=== PATIENT | female | born 1960 | race Two or more races ===

== ENCOUNTER 2019-04-23 15:47 | Emergency (ER) | payer OTHER ==
[2019-04-23] MEDS ORDERED: SODIUM CHLORIDE 0.9% 1,000 ML IV STA (16:11)
--- NOTE | 2019-04-23 16:15 | ED ---
General Adult HPI - General Chief complaint: Weakness Stated complaint: weakness Time Seen by Provider: 04/23/19 15:55 Source: patient, EMS, RN notes reviewed Mode of arrival: EMS Limitations: no limitations - History of Present Illness Initial comments: 58-year-old female without any significant past medical history aside from hysterectomy presents to the emergency department near syncope. Patient states that she was cleaning the bathroom using glucagon when she started to feel lightheaded and states she sat down and took a Xanax today she thought this could be a panic attack however it did not resolve. States that her arms legs were tingling. She denies any chest pain or shortness of breath. States that this continued during her ambulance ride and lasted for about 30 minutes total. However at this time patient is feeling much better.Patient has no other complaints at this time including shortness of breath, chest pain, abdominal pain, nausea or vomiting, headache, or visual changes. - Related Data Home Medications Medication Instructions Recorded Confirmed ALPRAZolam [Xanax] 0.125 - 0.25 mg PO BID PRN 04/23/19 04/23/19 Aspirin EC [Ecotrin Low Dose] 324 mg PO ONCE PRN 04/23/19 04/23/19 Loratadine [Claritin] 10 mg PO DAILY PRN 04/23/19 04/23/19 Allergies Allergy/AdvReac Type Severity Reaction Status Date / Time No Known Allergies Allergy Verified 04/23/19 15:56 Review of Systems ROS Statement: Those systems with pertinent positive or pertinent negative responses have been documented in the HPI. ROS Other: All systems not noted in ROS Statement are negative. Past Medical History Past Medical History: No Reported History History of Any Multi-Drug Resistant Organisms: None Reported Past Surgical History: Hysterectomy Past Psychological History: Anxiety Smoking Status: Former smoker Past Alcohol Use History: None Reported Past Drug Use History: None Reported General Exam Limitations: no limitations General appearance: alert, in no apparent distress Head exam: Present: atraumatic, normocephalic, normal inspection Eye exam: Present: normal appearance, PERRL, EOMI. Absent: scleral icterus, conjunctival injection, periorbital swelling ENT exam: Present: normal exam, mucous membranes moist Neck exam: Present: normal inspection, full ROM. Absent: tenderness, meningismus, lymphadenopathy Respiratory exam: Present: normal lung sounds bilaterally. Absent: respiratory distress, wheezes, rales, rhonchi, stridor Cardiovascular Exam: Present: regular rate, normal rhythm, normal heart sounds. Absent: bradycardia, tachycardia, irregular rhythm Neurological exam: Present: alert, oriented X3, CN II-XII intact, normal gait, other (GCS 15) Psychiatric exam: Present: normal affect Course Vital Signs 04/23/19 04/23/19 15:49 16:30 Temperature 97.9 F Pulse Rate 64 58 L Respiratory 18 16 Rate Blood Pressure 124/67 139/73 O2 Sat by Pulse 100 98 Oximetry EKG Findings - EKG Comments: EKG Findings:: Normal sinus rhythm, ventricular rate 62, LA interval 206, QTC 464 Medical Decision Making - Medical Decision Making Patient is a 38-year-old well-appearing female. No significant past medical history. HPI and physical exam as documented. Patient is nontoxic. EKG is unremarkable. CBC is unremarkable. CMP shows mild hyponatremia of 130. Patient was given a normal saline bolus. Patient also has a BUN to creatinine ratio of 23 and 2+ ketones consistent with dehydration. Chest x-ray shows no acute pulmonary process. Patient reevaluated, feeling much better. Patient likely had a tubal episode related to possibly dehydration. She did not have any chest pain or shortness of breath associated with this. As symptoms have r esolved patient can be discharged home to follow up with primary care. She will can return here if she has any worsening symptoms. - Lab Data Result diagrams: 04/23/19 16:24 04/23/19 16:24 Lab Results 04/23/19 04/23/19 04/23/19 Range/Units 16:24 16:24 16:24 WBC 6.9 (3.8-10.6) k/uL RBC 3.65 L (3.80-5.40) m/uL Hgb 12.6 (11.4-16.0) gm/dL Hct 38.1 (34.0-46.0) % MCV 104.4 H (80.0-100.0) fL MCH 34.4 (25.0-35.0) pg MCHC 33.0 (31.0-37.0) g/dL RDW 11.8 (11.5-15.5) % Plt Count 297 (150-450) k/uL Neutrophils % 61 % Lymphocytes % 33 % Monocytes % 3 % Eosinophils % 1 % Basophils % 0 % Neutrophils # 4.2 (1.3-7.7) k/uL Lymphocytes # 2.3 (1.0-4.8) k/uL Monocytes # 0.2 (0-1.0) k/uL Eosinophils # 0.1 (0-0.7) k/uL Basophils # 0.0 (0-0.2) k/uL Macrocytosis Slight PT 9.9 (9.0-12.0) sec INR 0.9 (<1.2) APTT 26.1 (22.0-30.0) sec Sodium 130 L (137-145) mmol/L Potassium 3.5 (3.5-5.1) mmol/L Chloride 99 (98-107) mmol/L Carbon Dioxide 22 (22-30) mmol/L Anion Gap 9 mmol/L BUN 11 (7-17) mg/dL Creatinine 0.46 L (0.52-1.04) mg/dL Est GFR (CKD-EPI)AfAm >90 (>60 ml/min/1.73 sqM) Est GFR (CKD-EPI)NonAf >90 (>60 ml/min/1.73 sqM) Glucose 114 H (74-99) mg/dL POC Glucose (mg/dL) (75-99) mg/dL POC Glu Head Cd Reactor Operator ID Calcium 8.8 (8.4-10.2) mg/dL Total Bilirubin 0.4 (0.2-1.3) mg/dL AST 33 (14-36) U/L ALT 48 (9-52) U/L Alkaline Phosphatase 42 (38-126) U/L Troponin I (0.000-0.034) ng/mL Total Protein 6.3 (6.3-8.2) g/dL Albumin 3.9 (3.5-5.0) g/dL Urine Color Urine Appearance (Clear) Urine pH (5.0-8.0) Ur Specific Neon (1.001-1.035) Urine Protein (Negative) Urine Glucose (UA) (Negative) Urine Ketones (Negative) Urine Blood (Negative) Urine Nitrite (Negative) Urine Bilirubin (Negative) Urine Urobilinogen (<2.0) mg/dL Ur Leukocyte Esterase (Negative) Urine RBC (0-5) /hpf Urine WBC (0-5) /hpf Ur Squamous Epith Cells (0-4) /hpf Urine Mucus (None) /hpf 04/23/19 04/23/19 04/23/19 Range/Units 16:24 16:25 17:04 WBC (3.8-10.6) k/uL RBC (3.80-5.40) m/uL Hgb (11.4-16.0) gm/dL Hct (34.0-46.0) % MCV (80.0-100.0) fL MCH (25.0-35.0) pg MCHC (31.0-37.0) g/dL RDW (11.5-15.5) % Plt Count (150-450) k/uL Neutrophils % % Lymphocytes % % Monocytes % % Eosinophils % % Basophils % % Neutrophils # (1.3-7.7) k/uL Lymphocytes # (1.0-4.8) k/uL Monocytes # (0-1.0) k/uL Eosinophils # (0-0.7) k/uL Basophils # (0-0.2) k/uL Macrocytosis PT (9.0-12.0) sec INR (<1.2) APTT (22.0-30.0) sec Sodium (137-145) mmol/L Potassium (3.5-5.1) mmol/L Chloride (98-107) mmol/L Carbon Dioxide (22-30) mmol/L Anion Gap mmol/L BUN (7-17) mg/dL Creatinine (0.52-1.04) mg/dL Est GFR (CKD-EPI)AfAm (>60 ml/min/1.73 sqM) Est GFR (CKD-EPI)NonAf (>60 ml/min/1.73 sqM) Glucose (74-99) mg/dL POC Glucose (mg/dL) 118 H (75-99) mg/dL POC Glu Head Cd Reactor Operator ID Glen Oliveira Calcium (8.4-10.2) mg/dL Total Bilirubin (0.2-1.3) mg/dL AST (14-36) U/L ALT (9-52) U/L Alkaline Phosphatase (38-126) U/L Troponin I <0.012 (0.000-0.034) ng/mL Total Protein (6.3-8.2) g/dL Albumin (3.5-5.0) g/dL Urine Color Light Yellow Urine Appearance Clear (Clear) Urine pH 6.5 (5.0-8.0) Ur Specific Neon 1.011 (1.001-1.035) Urine Protein Negative (Negative) Urine Glucose (UA) Negative (Negative) Urine Ketones 2+ H (Negative) Urine Blood Negative (Negative) Urine Nitrite Negative (Negative) Urine Bilirubin Negative (Negative) Urine Urobilinogen <2.0 (<2.0) mg/dL Ur Leukocyte Esterase Small H (Negative) Urine RBC 2 (0-5) /hpf Urine WBC 1 (0-5) /hpf Ur Squamous Epith Cells 1 (0-4) /hpf Urine Mucus Rare H (None) /hpf Disposition Clinical Impression: Lightheadedness Disposition: HOME SELF-CARE Condition: Good Instructions (If sedation given, give patient instructions): Lightheadedness (ED) Additional Instructions: Please drink plenty of fluids and increase salt intake. Follow-up with primary care in 1-2 days. Return to the emergency department if you have any worsening symptoms. Is patient prescribed a controlled substance at d/c from ED?: No Referrals: Roberto Carlos Ballard DO [Primary Care Provider] - 1-2 days Time of Disposition: 17:55
[2019-04-23 16:29] LABS: Glucose,Whole Blood 118 mg/dL (75-99)
[2019-04-23 16:30] LABS: Basophils % (A) 0 %; Eosinophils # (A) 0.1 k/uL (0-0.7); Eosinophils % (A) 1 %; HCT 38.1 % (34.0-46.0); HGB 12.6 gm/dL (11.4-16.0); Lymphocytes # (A) 2.3 k/uL (1.0-4.8); Lymphocytes % (A) 33 %; MCH 34.4 pg (25.0-35.0); MCV 104.4 fL (80.0-100.0); Macrocytosis Slight; Mean Platelet Volume 5.4; Monocytes # (A) 0.2 k/uL (0-1.0); Monocytes % (A) 3 %; Neutrophils # (A) 4.2 k/uL (1.3-7.7); Neutrophils % (A) 61 %; Platelet Count 297 k/uL (150-450); RBC 3.65 m/uL (3.80-5.40); RDW 11.8 % (11.5-15.5); WBC 6.9 k/uL (3.8-10.6)
[2019-04-23 16:38] LABS: INR 0.9 (<1.2); Partial Thromboplastin Time 26.1 sec (22.0-30.0); Prothrombin Time 9.9 sec (9.0-12.0)
[2019-04-23 16:41] LABS: ALT 48 U/L (9-52); AST 33 U/L (14-36); African American GFR (CKD) >90 (>60 ml/min/1.73 sqM); Albumin 3.9 g/dL (3.5-5.0); Alkaline Phosphatase 42 U/L (38-126); Anion Gap 9 mmol/L; Blood Urea Nitrogen 11 mg/dL (7-17); Calcium 8.8 mg/dL (8.4-10.2); Carbon Dioxide 22 mmol/L (22-30); Chloride 99 mmol/L (98-107); Glucose 114 mg/dL (74-99); Potassium 3.5 mmol/L (3.5-5.1); Sodium 130 mmol/L (137-145); Total Bilirubin 0.4 mg/dL (0.2-1.3); Total Protein 6.3 g/dL (6.3-8.2)
--- NOTE | 2019-04-23 16:53 | XR ---
EXAMINATION TYPE: XR chest 2V DATE OF EXAM: 04/23/2019 COMPARISON: None INDICATION: Syncope weakness TECHNIQUE: Frontal and lateral views of the chest are obtained. FINDINGS: The heart size is normal. The pulmonary vasculature is normal. The lungs are clear. There is hyperinflation flattening of the diaphragms. Consider emphysematous ch rasheed. IMPRESSION: 1. No acute pulmonary process. 2. Consider emphysema.
[2019-04-23 17:25] LABS: Appearance,Urine Clear (Clear); Bilirubin,Urine Negative (Negative); Blood,Urine Negative (Negative); Color,Urine Light Yellow; Glucose,Urine (UA) Negative (Negative); Ketones,Urine 2+ (Negative); Leukocyte Esterase,Urine Small (Negative); Mucus,Urine Rare /hpf; Nitrite,Urine Negative (Negative); PH, Urine 6.5 (5.0-8.0); Protein,Urine Negative (Negative); RBC,Urine 2 /hpf (0-5); Specific Gravity,Urine 1.011 (1.001-1.035); Squamous Epithelial Cell,Urine 1 /hpf (0-4); Urobilinogen,Urine <2.0 mg/dL (<2.0); WBC,Urine 1 /hpf (0-5)
[2019-04-23 18:18] VITALS: BP 110/58; PULSE 59; RESP 18; TEMP 97.8
== END 2019-04-23 18:16 | disposition home or self-care (01) ==
LOC: EC 15:47
DX: R42 Dizziness and giddiness (principal); E87.1 Hypo-osmolality and hyponatremia; Z87.891 Personal history of nicotine dependence; Z90.710 Acquired absence of both cervix and uterus
CPT/HCPCS: 36415; 71046; 80053; 81001; 84484; 85025; 85610; 85730; 93005; 96360; 99285

== ENCOUNTER 2020-07-05 15:45 | Emergency (ER) | payer BC, OTHER ==
[2020-07-05] MEDS ORDERED: KETOROLAC 15 MG/ML 1 ML VIAL IVP STA (16:17)
[2020-07-05 16:36] LABS: Basophils # (A) 0.1 k/uL (0-0.2); Basophils % (A) 1 %; Eosinophils # (A) 0.1 k/uL (0-0.7); Eosinophils % (A) 2 %; HCT 40.2 % (34.0-46.0); HGB 13.7 gm/dL (11.4-16.0); Lymphocytes % (A) 47 %; MCHC 34.1 g/dL (31.0-37.0); MCV 99.7 fL (80.0-100.0); Mean Platelet Volume 6.1; Monocytes # (A) 0.2 k/uL (0-1.0); Monocytes % (A) 3 %; Neutrophils # (A) 2.9 k/uL (1.3-7.7); Neutrophils % (A) 45 %; Platelet Count 409 k/uL (150-450); RBC 4.03 m/uL (3.80-5.40); RDW 12.1 % (11.5-15.5); WBC 6.3 k/uL (3.8-10.6)
[2020-07-05 16:45] LABS: ALT 31 U/L (4-34); AST 31 U/L (14-36); African American GFR (CKD) >90 (>60 ml/min/1.73 sqM); Albumin 4.7 g/dL (3.5-5.0); Alkaline Phosphatase 49 U/L (38-126); Anion Gap 7 mmol/L; Blood Urea Nitrogen 10 mg/dL (7-17); Calcium 9.9 mg/dL (8.4-10.2); Carbon Dioxide 25 mmol/L (22-30); Chloride 96 mmol/L (98-107); Glucose 91 mg/dL (74-99); Lipase 88 U/L (23-300); Non-African American GFR(CKD) >90 (>60 ml/min/1.73 sqM); Potassium 4.3 mmol/L (3.5-5.1); Sodium 128 mmol/L (137-145); Total Bilirubin 0.4 mg/dL (0.2-1.3); Total Protein 7.6 g/dL (6.3-8.2)
[2020-07-05 16:50] LABS: D-Dimer 0.2 mg/L FEU (<0.60); INR 0.9 (<1.2); Partial Thromboplastin Time 24.4 sec (22.0-30.0); Prothrombin Time 9.9 sec (9.0-12.0)
[2020-07-05] MEDS ORDERED: SODIUM CHLORIDE 0.9% 500 ML 500 ML IV ONE (16:53)
--- NOTE | 2020-07-05 16:55 | ED ---
General Adult HPI - General Chief complaint: Chest Pain Stated complaint: Back/side pain Time Seen by Provider: 07/05/20 16:07 Source: patient, RN notes reviewed, old records reviewed Mode of arrival: ambulatory Limitations: no limitations - History of Present Illness Initial comments: 59-year-old female presenting for evaluation of neck pain, shoulder pain, and chest pain. Patient's symptoms began over one week ago, with left-sided neck pain which she thought was a muscle strain. She denies injury. She states this has progressed the left arm pain. This all occurred after lifting her grandchildren. She denies central chest pain, she only has left upper chest pain adjacent to her shoulder. No dyspnea. No diaphoresis, no vomiting. - Related Data Home Medications Medication Instructions Recorded Confirmed ALPRAZolam [Xanax] 0.125 - 0.25 mg PO BID PRN 04/23/19 04/23/19 Aspirin EC [Ecotrin Low Dose] 324 mg PO ONCE PRN 04/23/19 04/23/19 Loratadine [Claritin] 10 mg PO DAILY PRN 04/23/19 04/23/19 Previous Rx's Medication Instructions Recorded Ibuprofen [Motrin] 600 mg PO Q8HR PRN #24 tab 07/05/20 Allergies Allergy/AdvReac Type Severity Reaction Status Date / Time No Known Allergies Allergy Verified 07/05/20 16:05 Review of Systems ROS Statement: Those systems with pertinent positive or pertinent negative responses have been documented in the HPI. ROS Other: All systems not noted in ROS Statement are negative. Past Medical History Past Medical History: No Reported History History of Any Multi-Drug Resistant Organisms: None Reported Past Surgical History: Hysterectomy Past Psychological History: Anxiety Smoking Status: Former smoker Past Alcohol Use History: None Reported Past Drug Use History: None Reported General Exam Limitations: no limitations General appearance: alert, in no apparent distress Head exam: Present: atraumatic, normocephalic Eye exam: Present: normal appearance, PERRL ENT exam: Present: normal exam Neck exam: Present: normal inspection. Absent: tenderness, meningismus Respiratory exam: Present: normal lung sounds bilaterally. Absent: respiratory distress, wheezes Cardiovascular Exam: Present: regular rate, normal rhythm GI/Abdominal exam: Present: soft. Absent: distended, tenderness, guarding Extremities exam: Present: normal inspection, normal capillary refill, other (2+ left radial pulse). Absent: pedal edema Neurological exam: Present: alert, oriented X3, CN II-XII intact. Absent: motor sensory deficit Psychiatric exam: Present: normal affect, normal mood Skin exam: Present: warm, dry, intact. Absent: cyanosis, diaphoretic, erythema Course Vital Signs 07/05/20 16:01 Temperature 98.2 F Pulse Rate 74 Respiratory 20 Rate Blood Pressure 160/76 O2 Sat by Pulse 99 Oximetry EKG Findings - EKG Comments: EKG Findings:: EKG: Normal sinus rhythm, rate 64, ND interval 192, QRS duration 82, QTC 416, no ST segment elevation Medical Decision Making - Medical Decision Making 59-year-old female with chief complaint of left arm pain and left-sided neck pain. She did have component of left upper chest pain although I suspect this is related to her left neck and left arm pain. She states it is worse while taking care of [id number]-old granddaughter. There is no typical features or central chest pain. EKG is sinus rhythm without ST segment elevation. She has a normal CBC, CMP showing chronic hyponatremia, negative troponin, negative d- dimer. I did perform x-rays of the cervical spine, shoulder, elbow as well as the chest. The only acute abnormality consistent with the patient's pain complaint is a C5 on C6 spondylosis. Patient will be prescribed Motrin, she will follow-up with both her primary care physician and orthopedics. - Lab Data Result diagrams: 07/05/20 16:22 07/05/20 16:22 Lab Results 07/05/20 07/05/20 07/05/20 Range/Units 16:22 16:22 16:22 WBC 6.3 (3.8-10.6) k/uL RBC 4.03 (3.80-5.40) m/uL Hgb 13.7 (11.4-16.0) gm/dL Hct 40.2 (34.0-46.0) % MCV 99.7 (80.0-100.0) fL MCH 34.0 (25.0-35.0) pg MCHC 34.1 (31.0-37.0) g/dL RDW 12.1 (11.5-15.5) % Plt Count 409 (150-450) k/uL MPV 6.1 Neutrophils % 45 % Lymphocytes % 47 % Monocytes % 3 % Eosinophils % 2 % Basophils % 1 % Neutrophils # 2.9 (1.3-7.7) k/uL Lymphocytes # 3.0 (1.0-4.8) k/uL Monocytes # 0.2 (0-1.0) k/uL Eosinophils # 0.1 (0-0.7) k/uL Basophils # 0.1 (0-0.2) k/uL PT 9.9 (9.0-12.0) sec INR 0.9 (<1.2) APTT 24.4 (22.0-30.0) sec D-Dimer 0.20 (<0.60) mg/L FEU Sodium 128 L (137-145) mmol/L Potassium 4.3 (3.5-5.1) mmol/L Chloride 96 L (98-107) mmol/L Carbon Dioxide 25 (22-30) mmol/L Anion Gap 7 mmol/L BUN 10 (7-17) mg/dL Creatinine 0.63 (0.52-1.04) mg/dL Est GFR (CKD-EPI)AfAm >90 (>60 ml/min/1.73 sqM) Est GFR (CKD-EPI)NonAf >90 (>60 ml/min/1.73 sqM) Glucose 91 (74-99) mg/dL Calcium 9.9 (8.4-10.2) mg/dL Magnesium 2.0 (1.6-2.3) mg/dL Total Bilirubin 0.4 (0.2-1.3) mg/dL AST 31 (14-36) U/L ALT 31 (4-34) U/L Alkaline Phosphatase 49 (38-126) U/L Troponin I (0.000-0.034) ng/mL Total Protein 7.6 (6.3-8.2) g/dL Albumin 4.7 (3.5-5.0) g/dL Lipase 88 (23-300) U/L 07/05/20 Range/Units 16:22 WBC (3.8-10.6) k/uL RBC (3.80-5.40) m/uL Hgb (11.4-16.0) gm/dL Hct (34.0-46.0) % MCV (80.0-100.0) fL MCH (25.0-35.0) pg MCHC (31.0-37.0) g/dL RDW (11.5-15.5) % Plt Count (150-450) k/uL MPV Neutrophils % % Lymphocytes % % Monocytes % % Eosinophils % % Basophils % % Neutrophils # (1.3-7.7) k/uL Lymphocytes # (1.0-4.8) k/uL Monocytes # (0-1.0) k/uL Eosinophils # (0-0.7) k/uL Basophils # (0-0.2) k/uL PT (9.0-12.0) sec INR (<1.2) APTT (22.0-30.0) sec D-Dimer (<0.60) mg/L FEU Sodium (137-145) mmol/L Potassium (3.5-5.1) mmol/L Chloride (98-107) mmol/L Carbon Dioxide (22-30) mmol/L Anion Gap mmol/L BUN (7-17) mg/dL Creatinine (0.52-1.04) mg/dL Est GFR (CKD-EPI)AfAm (>60 ml/min/1.73 sqM) Est GFR (CKD-EPI)NonAf (>60 ml/min/1.73 sqM) Glucose (74-99) mg/dL Calcium (8.4-10.2) mg/dL Magnesium (1.6-2.3) mg/dL Total Bilirubin (0.2-1.3) mg/dL AST (14-36) U/L ALT (4-34) U/L Alkaline Phosphatase (38-126) U/L Troponin I <0.012 (0.000-0.034) ng/mL Total Protein (6.3-8.2) g/dL Albumin (3.5-5.0) g/dL Lipase (23-300) U/L Disposition Clinical Impression: Spondylosis of cervical joint, Cervical radiculopathy at C5 Disposition: HOME SELF-CARE Condition: Good Instructions (If sedation given, give patient instructions): Chest Pain (ED), Cervical Radiculopathy (ED), Acute Neck Pain (ED) Prescriptions: Ibuprofen [Motrin] 600 mg PO Q8HR PRN #24 tab PRN Reason: Pain Is patient prescribed a controlled substance at d/c from ED?: No Referrals: None,Stated [Primary Care Provider] - 1-2 days Erickson Flynn DO [Doctor of Osteopathic Medicine] - 1-2 days Time of Disposition: 17:48
--- NOTE | 2020-07-05 17:14 | XR ---
EXAMINATION: XR chest 2V DATE AND TIME: 07/05/2020 4:46 PM CLINICAL INDICATION: PHH; Chest Pain TECHNIQUE: Departmental protocol COMPARISON: 04/23/2019 FINDINGS: The lungs are clear. The pleural spaces are negative. The cardiac silhouette is not enlarged. The remainder of the mediastinal silhouette is unremarkable. The skeletal structures and soft tissues are negative for acute findings. IMPRESSION: NO ACUTE PROCESS.
--- NOTE | 2020-07-05 17:16 | XR ---
PROCEDURE: XR cervical spine comp - 5V DATE AND TIME: 07/05/2020 4:46 PM CLINICAL INDICATION: PHH; neck pain TECHNIQUE: Department protocol COMPARISON: None FINDINGS: There is no fracture or malalignment. Multilevel cervical spondylosis changes are noted, pr edominantly mild in degree, but these are moderate in degree at the C5-6 level. The soft tissues are unremarkable. IMPRESSION: C5-6 moderate spondylosis.
--- NOTE | 2020-07-05 17:19 | XR ---
PROCEDURE: XR shoulder complete LT - 3V DATE AND TIME: 07/05/2020 5:07 PM CLINICAL INDICATION: PHH; Pain TECHNIQUE: Department protocol COMPARISON: None FINDINGS: There is no fracture or malalignment. There is a subtle 1 cm lucent focus at the acromion which is of doubtful clinical significance, unles s point tenderness is associated with this finding. If such acromion point tenderness is confirmed, f urther characterization can be provided with MRI. The soft tissues are unremarkable. No incidental findings. IMPRESSION: No definite acute radiographic process. However, 1 cm lucent focus discussed above.
--- NOTE | 2020-07-05 17:20 | XR ---
PROCEDURE: XR elbow complete LT - 3V DATE AND TIME: 07/05/2020 5:07 PM CLINICAL INDICATION: PHH; Pain TECHNIQUE: Department protocol COMPARISON: None FINDINGS: There is no fracture or malalignment. The soft tissues are unremarkable. IMPRESSION: NO ACUTE PROCESS.
[2020-07-05 18:20] VITALS: BP 140/74; PULSE 65; RESP 16; TEMP 98.1
== END 2020-07-05 18:20 | disposition home or self-care (01) ==
LOC: EC 15:45
DX: M47.812 Spondylosis without myelopathy or radiculopathy, cervical region (principal); M79.602 Pain in left arm; R07.9 Chest pain, unspecified; E87.1 Hypo-osmolality and hyponatremia; F41.9 Anxiety disorder, unspecified; Z79.899 Other long term (current) drug therapy; Z79.82 Long term (current) use of aspirin; Z87.891 Personal history of nicotine dependence
CPT/HCPCS: 36415; 93005; 85379; 80053; 83690; 83735; 84484; 85025; 85610; 85730; 72050; 73030; 73080; 71046; 99285; 96374; 96361; J1885

== ENCOUNTER → 2021-01-21 | Outpatient (CLI) | payer OTHER ==
--- NOTE | 2021-01-21 11:52 | P.CONS ---
History of Present Illness - Reason for Consult Consult date: 01/21/21 - Chief Complaint Neck and left arm pain - History of Present Illness This is a 60-year-old lady with history of neck pain with radiation to the left arm down to the hand with numbness and tingling in all fingers as she states. 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 She denies any bowel or bladder dysfunction. By MRI the patient has moderate spinal canal stenosis at C5 6 level and minor cord impingement with disc protrusion herniation at C4 5 level causing mild spinal canal stenosis there is also severe right and moderate to severe left foraminal stenosis at C5 6 level. Past Medical History Past Medical History: Hyperlipidemia Additional Past Medical History / Comment(s): neck pain History of Any Multi-Drug Resistant Organisms: None Reported Past Surgical History: Hysterectomy Past Anesthesia/Blood Transfusion Reactions: No Reported Reaction Smoking Status: Current every day smoker Medications and Allergies Home Medications Medication Instructions Recorded Confirmed Type ALPRAZolam [Xanax] 0.5 mg PO DAILY PRN 01/18/21 01/18/21 History Escitalopram [Lexapro] 20 mg PO DAILY 01/18/21 01/18/21 History Lovastatin [Mevacor] 10 mg PO DAILY 01/18/21 01/18/21 History Allergies Allergy/AdvReac Type Severity Reaction Status Date / Time No Known Allergies Allergy Verified 01/18/21 12:08 Physical Exam - Constitutional General appearance: thin - EENT Eyes: PERRLA - Neurologic Neuro exam of the upper extremities showed normal and symmetrical muscle strength bilaterally Mild tenderness in the cervical paravertebral musculature the left side Normal range of motion of the cervical spine Neurologic: CNII-XII intact - Psychiatric Psychiatric: A&O x's 3, appropriate affect, intact judgment & insight Assessment and Plan Plan: This is a 60-year-old lady with history of left cervical radiculopathy due to central and neural foraminal stenosis. The patient may benefit from getting cervical epidural steroid injection at the C7-T1 level in the left paramedian approach under fluoroscopic guidance. The procedure was explained to the patient and her son and her questions were answered. He denies taking any anticoagulants and denies any history of diabetes. I thank Dr. Lomax for the referral.
[2021-01-21 11:54] VITALS: BP 113/67; PULSE 91; RESP 18; TEMP 98
== END ==
LOC: PNWHC3 11:24
PROVIDERS: ATTEND Anesthesiology
DX: M48.02 Spinal stenosis, cervical region (principal); E78.5 Hyperlipidemia, unspecified; F17.200 Nicotine dependence, unspecified, uncomplicated
CPT/HCPCS: 99211

== ENCOUNTER 2021-02-12 11:48 | Day surgery (SDC) | payer OTHER ==
[2021-02-11 11:41] VITALS: BMI 19.3
[~2021-02-12 11:48] MED LIST: LACTATED RINGERS 1,000 ML IV SCH
[2021-02-12] MEDS ORDERED: LIDOCAINE 1% (10MG/ML) FOR IV START INTRADERMA ONE (12:14)
[2021-02-12] MEDS ORDERED: DEXAMETHASONE SOD PHOSPHATE 10 MG/ML 1 ML VIAL ONE (12:18)
[2021-02-12] MEDS ORDERED: fentaNYL (PF) 50 MCG/ML 2 ML AMP ONE (12:18)
[2021-02-12] MEDS ORDERED: MIDAZOLAM 2 MG/2 ML VIAL ONE (12:18)
[2021-02-12] MEDS ORDERED: IOPAMIDOL M200 10 ML VIAL ONE (12:18)
[2021-02-12 12:20] VITALS: RESP 16; TEMP 98
[2021-02-12] MEDS ORDERED: IV FLUID CONTINUATION 1,000 ML IV ONE (12:40)
--- NOTE | 2021-02-12 12:43 | P.PCN ---
Date of Procedure: 02/12/21 Procedure(s) Performed: . PROCEDURE 1. Cervical epidural steroid injection under fluoroscopic guidance, C7-T1 (fluoroscopy images available in the radiology department ) 2. Cervical epidurogram. PREOPERATIVE DIAGNOSIS: 1- Cervical spinal stenosis 2- Cervical radiculopathy. POSTOPERATIVE DIAGNOSIS: : 1- Cervical spinal stenosis 2- Cervical radiculopathy. ANESTHESIA: Local anesthesia with lidocaine 1 % , and moderate sedation, with Versed 2 mg and Fentanyl 50 mcg. EBL 0 PROCEDURE INDICATION: The patient with neck pain and radiculitis unresponsive to conservative treatment consents for procedure. PROCEDURE DESCRIPTION / TECHNIQUE: The patient was seen and identified in the preoperative area. Risks, benefits, complications, including but not limited to infections ,bleeding , allergic reactions to the medications ,and not complete pain releife, and alternatives were discussed with the patient, the patient agreed to proceed with the procedure and signed the consent. Patient was taken to the OR and time out was completed. The patient was placed in the prone position on the procedure table. A pillow was placed under the patients chest to increase the cervical interlaminar space. The cervical area was prepped and draped in the usual sterile fashion. Vital signs were closely monitored during the procedure. Conscious sedation was used during the procedure to decrease patients anxiety. Using anterior-posterior fluoroscopy, the C7-T1 interlaminar space ( Left paramedial ) was identified and the skin over this site was marked and then infiltrated with 1% lidocaine subcutaneously. Subsequently, a 20-gauge 3-1/2-inch Tuohy epidural needle was inserted and advanced toward the epidural space by means of the ``hanging-drop technique and guided by AP and lateral fluoroscopy. The correct needle position in the epidural space was verified with the injection of 2 mL of the water soluble contrast dye [id number]-[id number] and observing an excellent epidurogram with the epidural spread of the dye, after negative aspiration for blood and CSF and in the absence of paresthesias. then, mixture containing 20 mg Dexamethasone and 2 ml of preservative-free normal saline injected and a washout of epidurogram was seen. Needle was withdrawn intact, skin was cleansed, and bandages were applied. Complications= none. Disposition= patient was placed in supine position and transferred to the recovery room area in stable condition and there was no evidence of upper or lower extremity motor or sensory deficit after the procedure patient was discharged from recovery room after discharge criteria met and home discharge instructions was given by the staff and patient will follow with the pain clinic in 2-4 weeks
--- NOTE | 2021-02-12 12:53 | FL ---
EXAMINATION TYPE: FL guided pain mgmt statistic DATE OF EXAM: 02/12/2021 CLINICAL HISTORY: Neck pain. TECHNIQUE: Fluoroscopy. COMPARISON: None. FINDINGS: Fluoroscopic guidance was provided during pain relief procedure performed by Dr. Yun . A total of 3 seconds of fluoroscopic time was utilized during the procedure and 1 spot images are acquired. Single image acquired shows needle localization near cervicothoracic junction level. IMPRESSION: As Above.
[2021-02-12 12:58] VITALS: BP 123/65; PULSE 67
== END 2021-02-12 13:20 | disposition home or self-care (01) ==
LOC: ORPAIN 11:48
PROVIDERS: ATTEND Specialist
DX: M48.02 Spinal stenosis, cervical region (principal); M54.12 Radiculopathy, cervical region
CPT/HCPCS: 62321; J2250; J1100; J3010; Q9966; 99152

== ENCOUNTER 2021-03-19 12:46 | Day surgery (SDC) | payer OTHER ==
[2021-03-18 11:40] VITALS: BMI 42.6
[2021-03-19 13:07] VITALS: TEMP 96.9
[2021-03-19] MEDS ORDERED: DEXAMETHASONE SOD PHOSPHATE 10 MG/ML 1 ML VIAL ONE (13:17)
[2021-03-19] MEDS ORDERED: IOPAMIDOL M200 10 ML VIAL ONE (13:17)
[2021-03-19] MEDS ORDERED: fentaNYL (PF) 50 MCG/ML 2 ML AMP ONE (13:17)
[2021-03-19] MEDS ORDERED: MIDAZOLAM 2 MG/2 ML VIAL ONE (13:17)
--- NOTE | 2021-03-19 13:28 | P.PCN ---
Date of Procedure: 03/19/21 Surgeon: Ashlee Matos Pathology: none sent Condition: stable Disposition: PACU Description of Procedure: PROCEDURE 1. Cervical epidural steroid injection under fluoroscopic guidance, C7-T1 Left paramedian approach. 2. Cervical epidurogram. : PREOPERATIVE DIAGNOSIS: Cervical radiculopathy, cervical spondylosis without myelopathy POSTOPERATIVE DIAGNOSIS: : Same as above ANESTHESIA: Local anesthesia with 1% lidocaine and IV moderate conscious sedation with Versed and Fentanyl . EBL 0 PROCEDURE INDICATION: The patient with neck pain and radiculopathy unresponsive to conservative treatment consents for procedure. PROCEDURE DESCRIPTION / TECHNIQUE: The patient was seen and identified in the preoperative area. Risks, benefits, complications, including but not limited to infections ,bleeding , allergic reactions to the medications ,and not complete pain relief, and alternatives were discussed with the patient, the patient agreed to proceed with the procedure and signed the consent. Patient was taken to the OR and time out was completed. The patient was placed in the prone position on the procedure table. A pillow was placed under the patients chest to increase the flexion of the cervical spine . The cervical area was prepped and draped in the usual sterile fashion. Vital signs were closely monitored during the procedure. Conscious sedation was used during the procedure to decrease patients anxiety. Using anterior-posterior fluoroscopy, the C7-T1 interlaminar space was identified and the skin over this site was marked and then infiltrated with 1% lidocaine subcutaneously. Subsequently, a 20-gauge 3-1/2-inch Tuohy epidural needle was inserted and advanced toward the epidural space by means of loss of resistance to air technique and guided by AP and lateral fluoroscopy. The needle tip contacted the lamina of T1 vertebra first, then it was walked off bone and into the epidural space using the loss of to air and fluoroscopic guidance to identify the epidural space. The correct needle position in the epidural space was verified with the injection of 1 mL of the water soluble contrast dye Isovue and observing an excellent epidurogram with the epidural spread of the dye, after negative aspiration for blood and CSF and in the absence of paresthesias. Again after negative aspiration, a 2 ml mixture containing 10 mg of Decadron and 1 ml of preservative free Normal Saline solution was injected and a washout of epidurogram was seen. Needle was withdrawn intact, skin was cleansed, and bandages were applied. A copy of the needle placement picture was saved to the fluoroscopy machine.
[2021-03-19] MEDS ORDERED: IV FLUID CONTINUATION 650 ML IV ONE (13:34)
[2021-03-19 13:41] VITALS: RESP 16
[2021-03-19 14:17] VITALS: BP 109/50; PULSE 61
--- NOTE | 2021-03-19 14:25 | FL ---
Fluoroscopy INDICATION: Pain FINDINGS: Fluoroscopy time: 3 seconds. Images obtained: 0. IMPRESSIONS: 1. Documentation of fluoroscopy.
== END 2021-03-19 14:15 | disposition home or self-care (01) ==
LOC: ORPAIN 12:46
PROVIDERS: ATTEND Anesthesiology
DX: M47.22 Other spondylosis with radiculopathy, cervical region (principal); F41.9 Anxiety disorder, unspecified
CPT/HCPCS: 62321; J2250; J1100; J3010; Q9966; 99152

== ENCOUNTER → 2021-04-17 | Outpatient (CLI) | payer OTHER ==
[2021-04-17 11:39] VITALS: BP 110/77; PULSE 73; RESP 18; TEMP 97.4
--- NOTE | 2021-04-17 15:08 | P.PN ---
Subjective Progress Note Date: 04/17/21 His follow-up visit for this 60 years old female with a chronic history of severe neck pain with radiation to the left upper extremity associated with numbness and tingling sensation, she is diagnosed with cervical spinal stenosis and cervical degenerative disc disease, cervical radiculopathy, recently we have done cervical epidural steroid injections 2 and patient reported that her neck pain improved significantly but she continued to have severe numbness and stinging sensation in the left, the numbness is continuous severe interfering with her quality of life, she denies any motor or sensory deficit she denies any fever or night sweats. She denies any change in the bowel movement or urination Objective - Vital Signs Vital signs: Vital Signs Temp 97.4 F L 04/17/21 11:34 Pulse 73 04/17/21 11:34 Resp 18 04/17/21 11:34 BP 110/77 04/17/21 11:34 Pulse Ox 100 04/17/21 11:34 Intake & Output 04/16/21 04/17/21 04/17/21 18:59 06:59 18:59 Weight 41.277 kg - Exam Physical Examinations : -Constitutiona : Cooperative , not in acute distress . -HEENT : nech : supple , no Lymphadenopathy , normal thyroid size . : eyes : no ptosis , no icterus, no photophobia . - neurologic : Cranial nerve II to XII intact , no focal neurological deffecit . -psychatric : alert , oriented X 3 , appropriate affect , intact judgment and insight . -Lymphatic : no Lymphadenopathy . - musculoskeltal : Cervical Spine motor stregnth in the deltoid and biceps, normal right side , normal Left side motor stregnth biceps and the wrist extensors normal right side ,normal left side . motor stregnth in the triceps muscle . normal Right side , normal Left side deep tendon reflexes normal at the biceps , normal at Brachioradialis , normal at triceps. cervical facet loading test: Negative bilaterally Spurling test= negative bilaterally Neck distraction test= negative bilat erally Giuseppe sign= negative bilaterally Lumber spine moter stegnth lower extremities ,thigh and legs 5/5 Right side , 5/5 Left side Assessment and Plan Plan: Assessment and plan=1-cervical radiculopathy. 2-cervical spinal stenosis. 3-cervical degenerative disc disease. Patient continued to have severe numbness and tingling sensation after cervical epidural steroid injections 2 Patient could benefit from Neurontin 100 mg every morning and 5 mg every afternoon and 200 mg daily at bedtime She can follow up in the pain clinic in 6-8 weeks. Next visit if she continued to have pain across the doing third cervical epidural steroid injection - PQRS measures = - Patient's medications are documented in the chart. -Tobacco use is positive, and counseling.Given. -Patient's has not received pneumococcal vaccine. -Advanced care planning discussed, patient not eligible. -Opiate contract signed. -Pain positive and follow-up visit/procedure is scheduled. -Patient's blood pressure measured [ 110/77] , and documented in the record ,and patient will follow up with the primary care. -Patient's weight was measured and body mass index [ 18 ] below the normal limits and counseling was done. and patient instructed to follow-up with the primary care physician. -Patient was not identified as an unhealthy alcohol user Time with Patient: Less than 30
== END ==
LOC: PNWHC3 11:16
PROVIDERS: ATTEND Specialist
DX: M50.10 Cervical disc disorder with radiculopathy, unspecified cervical region (principal); M48.02 Spinal stenosis, cervical region; Z87.891 Personal history of nicotine dependence; Z88.8 Allergy status to other drugs, medicaments and biological substances
CPT/HCPCS: 99211

== ENCOUNTER → 2021-06-05 | Outpatient (CLI) | payer OTHER ==
[2021-06-05 10:15] VITALS: BP 123/78; PULSE 81; RESP 18; TEMP 97.3
--- NOTE | 2021-06-05 10:28 | P.PN ---
Subjective Progress Note Date: 06/05/21 This is follow-up visit for this 60 years old female with a chronic history of severe neck pain with radiation to the left upper extremity associated with numbness and tingling sensation, she is diagnosed with cervical spinal stenosis and cervical degenerative disc disease, cervical radiculopathy, recently we have done cervical epidural steroid injections 2, and patient reported that her neck pain improved significantly, but she continued to have severe numbness and stinging sensation in the left, the numbness is continuous severe interfering with her quality of life, she denies any motor or sensory deficit she denies any fever or night sweats. She denies any change in the bowel movement or urination currently on Neurontin 100 mg one tablet by mouth every morning one tablet by mouth every p.m. and 2 daily at bedtime she continued to have severe numbness during the daytime and she reported that the numbness improved at night Physical Examinations : -Constitutiona : Cooperative , not in acute distress . -HEENT : nech : supple , no Lymphadenopathy , normal thyroid size . : eyes : no ptosis , no icterus, no photophobia . - neurologic : Cranial nerve II to XII intact , no focal neurological deffecit . -psychatric : alert , oriented X 3 , appropriate affect , intact judgment and insight . -Lymphatic : no Lymphadenopathy . - musculoskeltal : Cervical Spine motor stregnth in the deltoid and biceps, normal right side , normal Left side motor stregnth biceps and the wrist extensors normal right side ,normal left side . motor stregnth in the triceps muscle . normal Right side , normal Left side deep tendon reflexes normal at the biceps , normal at Brachioradialis , normal at triceps. cervical facet loading test: Negative bilaterally Spurling test= negative bilaterally Neck distraction test= negative bilaterally Giuseppe sign= negative bilaterally Lumber spine moter stegnth lower extremities ,thigh and legs 5/5 Right side , 5/5 Left side Assessment and Plan Plan: Assessment and plan=1-cervical radiculopathy. 2-cervical spinal stenosis. 3-cervical degenerative disc disease. Patient continued to have severe numbness and tingling sensation after cervical epidural steroid injections 2 Patient could benefit from Neurontin 100 mg 2 tablets by mouth every 8 hours (200 mg TID ) She can follow up in the pain clinic in 6-8 weeks. - PQRS measures = - Patient's medications are documented in the chart. -Tobacco use is positive, and counseling.Given. -Patient's has not received pneumococcal vaccine. -Advanced care planning discussed, patient not eligible. -Opiate contract signed. -Pain positive and follow-up visit/procedure is scheduled. -Patient's blood pressure measured [ 123/78] , and documented in the record ,and patient will follow up with the primary care. -Patient's weight was measured and body mass index [ 18 ] below the normal limits and counseling was done. and patient instructed to follow-up with the primary care physician. -Patient was not identified as an unhealthy alcohol user Objective - Vital Signs Vital signs: Vital Signs Temp 97.3 F L 06/05/21 10:10 Pulse 81 06/05/21 10:10 Resp 18 06/05/21 10:10 BP 123/78 06/05/21 10:10 Pulse Ox 97 06/05/21 10:10
== END ==
LOC: PNWHC3 10:03
PROVIDERS: ATTEND Specialist
DX: M50.10 Cervical disc disorder with radiculopathy, unspecified cervical region (principal); M48.02 Spinal stenosis, cervical region; Z87.891 Personal history of nicotine dependence; Z91.09 Other allergy status, other than to drugs and biological substances
CPT/HCPCS: 99211

== ENCOUNTER → 2021-08-15 | Outpatient (CLI) | payer OTHER ==
[2021-08-15 12:03] VITALS: BP 120/68; PULSE 90; RESP 18; TEMP 97.5
--- NOTE | 2021-08-15 12:05 | P.PN ---
Subjective Progress Note Date: 08/15/21 Principal diagnosis: A 61 yr old female At Side with a history of severe and chronic neck pain secondary to cervical degenerative disc diseases and spondylosis with facet arthropathy presents today for medication refills. Pain level is 0.5 out of 10 in intensity, constant, dull, achy in the medical lower aspect of her cervical spine but escalates as high as 4-5 out of 10 in intensity with activity by days end. Pain is provoked by lifting. Pain is alleviated with medications, injections, heat, Yajaira stretches, repositioning and rest. Interventional pain procedures completed include HEMA in January, Patient is currently on gabapentin 200 mg 3 times a day Patient denies any side effects of the medication(s), denies excessive drowsiness or sleepiness, denies suicidal ideation and reports that the current pain medication is helping to control the pain and improve activities of daily living. Patient denies any motor or sensory deficits. Patient denies any fever or night sweats, denies any change in the bowel movements or urination. Physical Examination: -Constitutional: Cooperative. Not in acute distress . -HEENT: Neck is supple. No lymphadenopathy. No thyromegaly. Normal thyroid size. Eyes: No ptosis , no icterus, no photophobia. ENT: No auditory deficits. Normal oropharynx. No Thrush. - Respiratory: Chest clear to auscultations bilaterally. No wheezing. No rhonchi. - Cardiovascular: Regular rate and rhythm. S1 / S2 , no S3 , no S4. - Gastrointestinal: Abdomen soft no tenderness. Bowel sounds positive in all four quadrants. No organomegaly. - Genitourinary: Deferred. - Neurologic: Cranial nerve II to XII intact. No focal neurological deficits. - Psychatric: Alert & oriented x 3. Matching mood & appropriate affect. Judgment and insight intact. - Lymphatic: No Lymphadenopathy. - Musculoskeletal: Cervical spine: Muscle bulk/ tone/ strength in the bilateral upper extremities normal. Vertebral body tenderness over the C4, C5, C6 Spurling test positive Distraction test positive Facet loading test cervical area positive. Lumbar spine: Motor bulk/ tone/ strength lower extremities , thigh and legs : 5/5 Deep tendon reflexes : Normal Knee Jerk. Normal Ankle Jerk . Vertebral body tenderness to palpation over Lumbar Facet Loading Test positive Straight Leg Raise: positive at 30 degrees right side/ left side Gaenslen's Test positive Sacral spine : Severe tenderness over the Sacroiliac joint: right side / left side Range of motion: Flexion of the lumbar spine <60 degrees Range of motion: Extension of the lumbar spine <20 degrees Gaenslen's Test positive Marie test: positive right side / left side Assessment and plan: Chronic neck pain secondary to cervical degenerative disc disease , spondylosis with facet arthropathy without myelopathy Chronic and current use of high-risk medication (Opioids). The patient was counseled about risk of opioid use, psychological risk associated with opioids and was orally counseled to not overuse , divert or sell medications. Pt is to store medication in a safe location. The patient is counseled against driving while using narcotic medications and also not to use alcohol or any illicit recreational drugs. Patient verbalized understanding that the lack of compliance will result in failure to renew narcotic prescription(s) as well as possible discharge from the clinic Diagnoses, prognosis and treatment options including but not limited to physical therapy, surgical interventions, interventional therapies and medication management including narcotics and adjuvant medication were discussed. All patient questions answered MAPS reviewed and it was appropriate. Urine collected for UDS today Prescription refill for gabapentin 200 mg 3 times a day, 60 day supply I have spent 31 minutes on patient care today. Dr Yun was available by phone for the evaluation of this patient. The time was used to review the medical records including relevant urine studies and Prescription history (MAPs), review of the available imaging, evaluation and examination of the patient, coordination of care with the medical staff and if applicable referring physicians, as well as creation of the medical record PQRS Measure Charge Sheet Mode of Arrival: Ambulatory - Pain Location Neck Non-Pharmacological Interventions: Heat, Home Exercise, Inactivity, Sitting Pharmacological Interventions: Medication PQRS Narrative: Smoking Status Former smoker Narcotic Agreement Date Signed 04/17/21 Blood Pressure 120/68 Pain Intensity [Neck] 1 Scale Used Numeric (1 - 10) Hx Alcohol Use (MH) Yes Home Medications: Ambulatory Orders ALPRAZolam [Xanax] 0.5 mg PO DAILY PRN 01/18/21 Escitalopram [Lexapro] 20 mg PO DAILY 01/18/21 Gabapentin [Neurontin] 100 mg PO TID #180 cap 06/05/21
== END ==
LOC: PNWHC3 11:26
PROVIDERS: ATTEND Physician Assistant Medical
DX: G89.29 Other chronic pain (principal); M50.30 Other cervical disc degeneration, unspecified cervical region; M47.812 Spondylosis without myelopathy or radiculopathy, cervical region; Z79.891 Long term (current) use of opiate analgesic; Z91.09 Other allergy status, other than to drugs and biological substances
CPT/HCPCS: 80307; 99211; G0482

== ENCOUNTER → 2021-10-09 | Outpatient (CLI) | payer OTHER ==
--- NOTE | 2021-10-09 14:15 | P.PN ---
Subjective Progress Note Date: 10/09/21 Principal diagnosis: A 61 yr old female with at side with a history of severe and chronic neck & low back pain secondary to cervical/ lumbar degenerative disc diseases and spondylosis with facet arthropathy presents today for medication refills. Pain level is currently at 2.5/10 in intensity, dull, achy, sore in the neck and lower back areas with radiation of pain from neck to LUE. Pain is provoked by lifting, bending and cold weather. Pain is alleviated with medications, Salon Pas patches, heat, injections in the past, epsom salt baths, reclining and rest. Discussed UDS results form 08/15/21 which were ETG. Pt informed me that she refrained from Neurotin use for 1 day while having 1 alcoholic beverage. Interventional pain procedures completed include HEMA C7-T1 Patient is currently on Neurontin 200mg TID. Patient denies any side effects of the medication(s), denies excessive drowsiness or sleepiness, denies suicidal ideation and reports that the current pain medication is helping to control the pain and improve activities of daily living. Patient denies any motor or sensory deficits. Patient denies any fever or night sweats, denies any change in the bowel movements or urination. Physical Examination: -Constitutional: Cooperative. Not in acute distress . -HEENT: Neck is supple. No lymphadenopathy. No thyromegaly. Normal thyroid size. Eyes: No ptosis , no icterus, no photophobia. ENT: No auditory deficits. Normal oropharynx. No Thrush. - Respiratory: Chest clear to auscultations bilaterally. No wheezing. No rhonchi. - Cardiovascular: Regular rate and rhythm. S1 / S2 , no S3 , no S4. - Gastrointestinal: Abdomen soft no tenderness. Bowel sounds positive in all four quadrants. No organomegaly. - Genitourinary: Deferred. - Neurologic: Cranial nerve II to XII intact. No focal neurological deficits. - Psychatric: Alert & oriented x 3. Matching mood & appropriate affect. Judgment and insight intact. - Lymphatic: No Lymphadenopathy. - Musculoskeletal: Cervical spine: Muscle bulk/ tone/ strength in the bilateral upper extremities normal. Facet loading test cervical area positive on the left Lumbar spine: Motor bulk/ tone/ strength lower extremities , thigh and legs : 5/5 Deep tendon reflexes : Normal Knee Jerk. Normal Ankle Jerk . Vertebral body tenderness to palpation over L4 Lumbar Facet Loading Test positive Straight Leg Raise: positive at 30 degrees right side/ left side Gaenslen's Test positive Sacral spine : Severe tenderness over the Sacroiliac joint: right side / left side Range of motion: Flexion of the lumbar spine <60 degrees Range of motion: Extension of the lumbar spine <20 degrees Gaenslen's Test positive Marie test: positive right side / left side Assessment and plan: Chronic low back pain secondary to lumbar degenerative disc disease , lumbar spondylosis with facet arthropathy without myelopathy Chronic and current use of high-risk medication (Opioids). The patient was counseled about risk of opioid use, psychological risk associated with opioids and was orally counseled to not overuse , divert or sell medications. Pt is to store medication in a safe location. The patient is counseled against driving while using narcotic medicatio ns and also not to use alcohol or any illicit recreational drugs. Patient verbalized understanding that the lack of compliance will result in failure to renew narcotic prescription(s) as well as possible discharge from the clinic Diagnoses, prognosis and treatment options including but not limited to physical therapy, surgical interventions, interventional therapies and medication management including narcotics and adjuvant medication were discussed. All patient questions answered MAPS reviewed and it was appropriate. UDS from 08/15/21 reviewed and consistent. Prescription refill for Neurontin 200mg TID #90 w 1 refill. I have spent 31 minutes on patient care today. Dr Yun was available by phone for the evaluation of this patient. The time was used to review the medical records including relevant urine studies and Prescription history (MAPs), review of the available imaging, evaluation and examination of the patient, coordination of care with the medical staff and if applicable referring physicians, as well as creation of the medical record PQRS Measure Charge Sheet PQRS Narrative: Smoking Status Former smoker Narcotic Agreement Date Signed 04/17/21 Hx Alcohol Use (MH) Yes Home Medications: Ambulatory Orders ALPRAZolam [Xanax] 0.5 mg PO DAILY PRN 01/18/21 Escitalopram [Lexapro] 20 mg PO DAILY 01/18/21 Gabapentin [Neurontin] 200 mg PO TID 30 Days #90 cap 10/09/21
[2021-10-09 14:24] VITALS: BP 121/59; PULSE 82; RESP 16; TEMP 98.5
== END ==
LOC: PNWHC3 13:48
PROVIDERS: ATTEND Specialist
DX: M51.36 Other intervertebral disc degeneration, lumbar region (principal); M47.816 Spondylosis without myelopathy or radiculopathy, lumbar region; G89.29 Other chronic pain; Z79.891 Long term (current) use of opiate analgesic; Z87.891 Personal history of nicotine dependence; Z91.048 Other nonmedicinal substance allergy status
CPT/HCPCS: 99211